=== PATIENT | female | born 1990 | race Caucasian/White ===

== ENCOUNTER 2017-06-08 19:01 | Inpatient (IN) | payer BC, OTHER ==
[2017-06-08 19:52] LABS: Absolute Lymphocytes (CBC) 2.4 K/uL (0.7-4.9); Absolute Monocytes 1.2 K/uL (0.1-1.3); Absolute Neutrophil 18.9 K/uL (1.8-8.0); Eosinophils % 1.3 % (0-4.4); Hematocrit 43.3 % (36.0-45.0); Lymphocytes % 10.5 % (15.3-44.8); MCH 30.1 pg (27.0-35.0); MCV 88.9 fL (80-100); MPV 7.8 fL (7.6-11.3); Monocytes % 5.2 % (3.3-12.3); RBC Red Blood Cell Count 4.87 M/uL (3.86-4.86)
[2017-06-08 20:00] LABS: Glomerular Filtration Rate > 60 mL/min (>60)
[2017-06-08 20:14] LABS: Glucose Level 165 mg/dL (65-120); Lipase 17 U/L (22-51)
[2017-06-08 20:19] LABS: Bicarbonate 25 mEq/L (21-31); Potassium 4.2 mEq/L (3.6-5.0); Sodium Level 138 mEq/L (135-145)
[2017-06-08 20:21] LABS: Albumin 3.9 g/dL (3.2-5.5); Alkaline Phosphatase 91 IU/L (42-121); BUN Blood Urea Nitrogen 17 mg/dL (6-20); Bilirubin Direct 0.2 mg/dL (0-0.2); Bilirubin Total 0.5 mg/dL (0.3-1.2); Glomerular Filtration Rate > 90 mL/min (=/>90); Protein, Total 7.7 g/dL (6.0-8.3)
[2017-06-08 20:22] LABS: ALT/SGPT 38 IU/L (10-60); AST/SGOT 27 IU/L (10-42); Amylase Level 36 U/L (28-100)
[2017-06-08 20:40] LABS: Urine Blood 2+ (NEG); Urine Glucose NEGATIVE (NEG); Urine Protein NEGATIVE (NEG); Urine Specific Gravity 1.025 (1.005-1.030)
[2017-06-08 20:43] LABS: Urine White Blood Cell Casts OK
[2017-06-08 20:43] LABS: Urine Bacteria <20 /HPF (<20); Urine Culture Reflex Order NOT NEEDED; Urine Mucus NS /HPF (NONE SEEN)
[2017-06-08 20:44] LABS: Blood Morphology Comment NOT SEEN (NOT SEEN); Platelet Estimate ADEQ
[2017-06-08] MEDS ORDERED: NA CHLORIDE 0.9% 1,000 ML ONE (20:56)
[2017-06-08] MEDS ORDERED: ONDANSETRON 4 MG/2 ML VIAL ONE ×2 (20:56→22:18)
[2017-06-08] MEDS ORDERED: MORPHINE 4 MG/ML SYR ONE ×2 (20:56→21:26)
--- NOTE | 2017-06-08 21:01 | RAD REPORT ---
EXAM DESCRIPTION: CT - Abdomen Pelvis Wo Contrast - 06/08/2017 8:51 pm CLINICAL HISTORY: Abdominal pain. COMPARISON: None TECHNIQUE: CT imaging of the abdomen and pelvis was performed without contrast. Solid organ, bowel a nd vascular assessment is limited due to lack of IV and oral contrast. All CT scans are performed using dose optimization technique as appropriate and may include automated exposure control or mA/KV adjustment according to patient size. FINDINGS: The lower lung helm are clear. The liver, spleen, pancreas, adrenal glands and kidneys are within normal limits for a limited non-co ntrast examination. No bowel obstruction, free air, free fluid or abscess. The appendix is dilated 12 mm with slight inf lammation in the surrounding fat, likely indicating early acute appendicitis. The osseous structures are within normal limits. IMPRESSION: Early acute appendicitis is suspected. A limited non-contrast examination was performed as detailed.
--- NOTE | 2017-06-08 21:40 | EDPHYS ---
Physician Documentation [facility] Name: Lisbeth Quarles Age: 26 yrs Sex: Female : 1990 Arrival Date: 06/08/2017 Time: 19:02 Bed 15 Private MD: ED Physician Tej Segundo HPI: 06/08 22:02 This 26 yrs old Female presents to ER via Wheelchair with complaints of tw4 Abdominal Pain. 22:02 The patient presents with abdominal pain right lower quadrant. Onset: The tw4 symptoms/episode began/occurred today. The symptoms do not radiate. Associated signs and symptoms: none. The symptoms are described as sharp. Modifying factors: The symptoms are alleviated by nothing, the symptoms are aggravated by nothing. Severity of pain: At its worst the pain was severe in the emergency department the pain is unchanged. The patient has not experienced similar symptoms in the past. 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 - Social history:: Smoking status: Patient/guardian denies using tobacco. ROS: 22:02 Constitutional: Negative for fever, chills, and weight loss, Eyes: Negative for injury, tw4 pain, redness, and discharge, Cardiovascular: Negative for chest pain, palpitations, and edema, Respiratory: Negative for shortness of breath, cough, wheezing, and pleuritic chest pain. 22:02 Abdomen/GI: Positive for abdominal pain, nausea, Negative for nausea and vomiting, nausea, vomiting, and diarrhea, black/tarry stool, rectal pain, rectal bleeding, bowel incontinence. Exam: 22:02 Constitutional: This is a well developed, well nourished patient who is awake, alert, tw4 and in no acute distress. Head/Face: Normocephalic, atraumatic. Chest/axilla: Normal chest wall appearance and motion. Nontender with no deformity. No lesions are appreciated. Cardiovascular: Regular rate and rhythm with a normal S1 and S2. No gallops, murmurs, or rubs. Normal PMI, no JVD. No pulse deficits. Respiratory: Lungs have equal breath sounds bilaterally, clear to auscultation and percussion. No rales, rhonchi or wheezes noted. No increased work of breathing, no retractions or nasal flaring. Back: No spinal tenderness. No costovertebral tenderness. Full range of motion. Skin: Warm, dry with normal turgor. Normal color with no rashes, no lesions, and no evidence of cellulitis. MS/ Extremity: Pulses equal, no cyanosis. Neurovascular intact. Full, normal range of motion. 22:02 Abdomen/GI: Inspection: abdomen appears normal, Bowel sounds: normal, Palpation: severe abdominal tenderness, in the right lower quadrant. Vital Signs: 19:34 BP 155 / 95; Pulse 116; Resp 19; Temp 99.6; Pulse Ox 97% on R/A; Weight 102.51 kg; aj Height 5 ft. 5 in. (165.10 cm); Pain 9/10; 22:02 BP 134 / 72; Pulse 102; Resp 16; Pulse Ox 99% on R/A; mt 19:34 Body Mass Index 37.61 (102.51 kg, 165.10 cm) aj MDM: 20:20 Patient medically screened. tw4 22:02 Differential diagnosis: appendicitis, gastritis, GI Bleed, Hepatitis, Ovarian Torsion. tw4 Data reviewed: vital signs, nurses notes. Data interpreted: Pulse oximetry: Interpretation: normal. Counseling: I had a detailed discussion with the patient and/or guardian regarding: the historical points, exam findings, and any diagnostic results supporting the discharge/admit diagnosis. Physician consultation: David Pandey MD regarding admission, to the operating room, patient's condition, and will see patient in ED. Admission orders: after a detailed discussion of the patient's condition and case, the admit orders are written by me. 06/08 19:36 Order name: Amylase, Serum; Complete Time: 20:28 06/08 19:36 Order name: Basic Metabolic Panel; Complete Time: 20:28 06/08 19:36 Order name: CBC with Diff; Complete Time: 21:24 06/08 19:36 Order name: Creatinine for Radiology; Complete Time: 20: 06/08 19:36 Order name: Hepatic Function; Complete Time: 20:28 06/08 19:36 Order name: Lipase; Complete Time: 20:28 06/08 19:36 Order name: Urine Microscopic Only; Complete Time: 21:24 06/08 20:05 Order name: CBC Smear Scan; Complete Time: 21:24 [facility] 06/08 20:26 Order name: Urine Dipstick--Ancillary (enter results); Complete Time: 21:24 [facility] 06/08 20:26 Order name: Urine --Ancillary (enter results); Complete Time: 21:24 [facility] 06/08 20:33 Order name: Abdomen ; Complete Time: 21:24 [facility] 06/08 19:36 Order name: IV Saline Lock; Complete Time: 20: 06/08 19:36 Order name: Labs collected and sent; Complete Time: 20: 06/08 19:36 Order name: Urine Dipstick-Ancillary (obtain specimen); Complete Time: 20:24 Administered Medications: 20:38 Drug: morphine 4 mg Route: IVP; Site: left antecubital; bp 21:10 Follow up: Response: No adverse reaction; Pain is decreased ao 20:38 Drug: Zofran 4 mg Route: IVP; Site: left antecubital; bp 21:10 Follow up: Response: No adverse reaction ao 20:38 Drug: NS 0.9% 1000 ml Route: IV; Rate: 1 bolus; Site: left antecubital; bp 22:09 Follow up: IV Status: Infusion continued upon admission ao 21:09 Drug: morphine 4 mg Route: IVP; Site: left antecubital; ao 22:09 Follow up: Response: No adverse reaction ao 21:52 Drug: fentaNYL (PF) 25 mcg {Note: Ordered IV. Given IVP.} Route: IM; Site: Other; ao 22:08 Follow up: Response: No adverse reaction ao 21:53 Drug: Zosyn 3.375 grams Route: IVPB; Infused Over: 60 mins; Site: left antecubital; ao 22:09 Follow up: IV Status: Infusion continued upon admission ao 21:53 Drug: Flagyl 500 mg Volume: 100 ml; Route: IVPB; Rate: 200 ml/hr; Infused Over: 30 ao mins; Site: left antecubital; 22:08 Follow up: IV Status: Follow up upon on admission ao Disposition: 06/08/17 21:40 Hospitalization ordered by David Pandey for Inpatient Admission. Preliminary diagnosis is Acute appendicitis with localized peritonitis. - Bed requested for Operating Room. - Status is Inpatient Admission. ao - Condition is Fair. - Problem is new. - Symptoms are unchanged. UTI on Admission? No Signatures: Dispatcher [employer] EDMS Tawanna Garcia RN RN aj Ortiz, Alex RN Henok Chiang, Tej Hennessy RN, MD MD tw4 Corrections: (The following items were deleted from the chart) 20:31 19:37 Abdomen Pelvis W Con+CT.RAD.BRZ ordered. EDMS EDMS 20:33 20:28 Abdomen Pelvis W/Wo Con+CT.RAD.BRZ ordered. EDMS EDMS
--- NOTE | 2017-06-08 21:40 | ER ---
Nurse's Notes [facility] Name: Lisbeth Quarles Age: 26 yrs Sex: Female : 1990 Arrival Date: 06/08/2017 Time: 19:02 Bed 15 Private MD: Diagnosis: Acute appendicitis with localized peritonitis Presentation: 06/08 19:32 Presenting complaint: Patient states: RLQ abdominal pain that is worse with movement aj and palpation. Transition of care: patient was not received from another setting of care. Onset of symptoms was June 08, 2017. Care prior to arrival: None. 19:32 Method Of Arrival: Wheelchair aj 19:32 Acuity: JODI 3 aj Triage Assessment: 19:34 General: Appears in no apparent distress. uncomfortable, Behavior is calm, cooperative, aj appropriate for age. Pain: Complains of pain in right lower quadrant Pain currently is 9 out of 10 on a pain scale. Neuro: Level of Consciousness is awake, alert, obeys commands, Oriented to person, place, time, situation. Respiratory: Airway is patent Respiratory effort is even, unlabored, Respiratory pattern is regular, symmetrical. GI: Abdomen is non-distended, obese, Reports lower abdominal pain. Derm: Skin is intact, is healthy with good turgor, Skin is pink, warm \T\ dry. normal. 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 - Social history:: Smoking status: Patient/guardian denies using tobacco. Screenin:20 Abuse screen: Denies threats or abuse. Denies injuries from another. Nutritional ao screening: No deficits noted. Tuberculosis screening: No symptoms or risk factors identified. Fall Risk None identified. Assessment: 20:18 General: Appears in no apparent distress. uncomfortable, Behavior is cooperative, ao appropriate for age. Pain: Complains of pain in abdomen Pain currently is 10 out of 10 on a pain scale. Neuro: Level of Consciousness is awake, alert, obeys commands, Oriented to person, place, time, situation, Appropriate for age Moves all extremities. Speech is normal, Facial symmetry appears normal. Cardiovascular: Capillary refill < 3 seconds Patient's skin is warm and dry. Respiratory: Airway is patent Respiratory effort is even, unlabored, Respiratory pattern is regular, symmetrical. GI: Bowel sounds present X 4 quads. Abdomen is tender to palpation. GI: Reports nausea, Pain is 10 out of 10 on a pain scale. : No signs and/or symptoms were reported regarding the genitourinary system. EENT: No signs and/or symptoms were reported regarding the EENT system. Derm: Skin is intact, Skin is pink, warm \T\ dry. Skin temperature is warm. Musculoskeletal: No signs and/or symptoms reported regarding the musculoskeletal system. Amputation of Range of motion: intact in all extremities. 21:21 Reassessment: Patient appears in no apparent distress at this time. Patient and/or ao family updated on plan of care and expected duration. Pain level reassessed. Patient is alert, oriented x 3, equal unlabored respirations, skin warm/dry/pink. Patient states feeling better. Vital Signs: 19:34 BP 155 / 95; Pulse 116; Resp 19; Temp 99.6; Pulse Ox 97% on R/A; Weight 102.51 kg; aj Height 5 ft. 5 in. (165.10 cm); Pain 9/10; 22:02 BP 134 / 72; Pulse 102; Resp 16; Pulse Ox 99% on R/A; mt 19:34 Body Mass Index 37.61 (102.51 kg, 165.10 cm) aj ED Course: 19:02 Patient arrived in ED. as 19:32 Triage completed. aj 19:34 Arm band placed on left wrist. Patient placed in waiting room, in view of staff aj members, Patient notified of wait time. Labs ordered per protocol. Drawn by ED staff. CT ordered. 19:43 Inserted saline lock: 20 gauge in left antecubital area, using aseptic technique. Blood aj collected. 19:45 Tawanna Garcia, RN is Primary Nurse. aj 20:04 CT patient finished contrast. aj 20:20 Tej Segundo MD is Attending Physician. tw4 20:21 Patient has correct armband on for positive identification. Pulse ox on. NIBP on. ao 20:51 Abdomen In Process Unspecified. EDMS 21:39 David Pandey MD is Hospitalizing Provider. tw4 22:06 No provider procedures requiring assistance completed. Patient admitted, IV remains in ao place. Administered Medications: 20:38 Drug: morphine 4 mg Route: IVP; Site: left antecubital; bp 21:10 Follow up: Response: No adverse reaction; Pain is decreased ao 20:38 Drug: Zofran 4 mg Route: IVP; Site: left antecubital; bp 21:10 Follow up: Response: No adverse reaction ao 20:38 Drug: NS 0.9% 1000 ml Route: IV; Rate: 1 bolus; Site: left antecubital; bp 22:09 Follow up: IV Status: Infusion continued upon admission ao 21:09 Drug: morphine 4 mg Route: IVP; Site: left antecubital; ao 22:09 Follow up: Response: No adverse reaction ao 21:52 Drug: fentaNYL (PF) 25 mcg {Note: Ordered IV. Given IVP.} Route: IM; Site: Other; ao 22:08 Follow up: Response: No adverse reaction ao 21:53 Drug: Zosyn 3.375 grams Route: IVPB; Infused Over: 60 mins; Site: left antecubital; ao 22:09 Follow up: IV Status: Infusion continued upon admission ao 21:53 Drug: Flagyl 500 mg Volume: 100 ml; Route: IVPB; Rate: 200 ml/hr; Infused Over: 30 ao mins; Site: left antecubital; 22:08 Follow up: IV Status: Follow up upon on admission ao Outcome: 21:40 Decision to Hospitalize by Provider. tw4 22:06 Admitted to OR accompanied by nurse, Other Bedside report given to OR Nurse. Patient ao agree with the POC at this moment 22:06 Condition: stable 22:06 Instructed on the need for admit. 22:07 Patient left the ED. ao Signatures: Dispatcher [employer] EDMS Tawanna Garcia RN RN aj Martinez, Amelia as Ortiz, Alex RN Erica Aaron mt, Brian, RN RN bp Wadley, Terrence, MD MD tw4
[2017-06-08] MEDS ORDERED: FENTANYL CITR 100 MCG/2 ML ONE ×2 (21:58→22:18)
[2017-06-08] MEDS ORDERED: PIPER/TAZO/NS 3.375gm 3.375 GM/100 ML BAG ONE (21:59)
[2017-06-08] MEDS ORDERED: METRONIDAZOLE 500mg IVPB 500 MG/100 ML BAG IV ONE (21:59)
[2017-06-08] MEDS ORDERED: PROPOFOL 200 MG/20 ML VIAL IV ONE (22:17)
[2017-06-08] MEDS ORDERED: MIDAZOLAM HCL 2 MG/2 ML INJ ONE (22:17)
[2017-06-08] MEDS ORDERED: GLYCOPYRROLATE 0.2 MG/ML SYR ONE (22:18)
[2017-06-08] MEDS ORDERED: MORPHINE 10 MG/ML VIAL ONE (22:19)
[2017-06-08] MEDS ORDERED: LIDOCAINE 1% MPF 5 ML VIAL ONE (22:19)
[2017-06-08] MEDS ORDERED: KETOROLAC 30 MG/ML INJ ONE (22:19)
[2017-06-08] MEDS ORDERED: ROCURONIUM 50 MG/5 ML VIAL IV ONE (22:19)
[2017-06-08] MEDS ORDERED: NEOSTIGMINE 1 MG/ML -5 ML SYRINGE ONE (22:19)
[2017-06-08] MEDS ORDERED: NA CIT/CITRIC AC 30 ML ORAL UDC ONE (22:31)
[2017-06-08] MEDS ORDERED: BUPIVACAINE 0.5% PF 10 ML VIAL ONE (22:32)
[2017-06-08] MEDS ORDERED: MORPHINE 4 MG/ML SYR IV PRN (22:37)
[2017-06-08] MEDS ORDERED: SODIUM CHLORIDE 0.9% 10ML INJ IV PRN (22:37)
--- NOTE | 2017-06-08 22:37 | P.BOP ---
Preoperative diagnosis: Acute appendicitis Postoperative diagnosis: same Primary procedure: Laparoscopic appendectomy Estimated blood loss: <20cc Specimen: danielle Findings: as above Anesthesia: General Complications: None Transferred to: Recovery Room Condition: Good
[2017-06-08] MEDS ORDERED: NA CHLORIDE 0.9% 1,000 ML IV SCH (23:00)
[2017-06-08] MEDS ORDERED: Ringers Lactate 1,000 ML IV ONE (23:30)
[2017-06-08] MEDS ORDERED: Levofloxacin 750mg IV 750 MG/150 ML BAG IV SCH (23:45)
[2017-06-09] MEDS ORDERED: CEFOXITIN 1 GM in NA CHLORIDE 0.9% 100 ML IVPB SCH ×2
[2017-06-09] MEDS: ONDANSETRON 4 MG/2 ML VIAL IV PRN ×2 (00:30→06:44)
--- NOTE | 2017-06-09 01:03 | OP ---
Date of Procedure: 06/08/2017 Surgeon: David Pandey MD Preoperative Diagnosis: Acute appendicitis. Postoperative Diagnosis: Acute appendicitis. Procedure: Laparoscopic appendectomy. Anesthesia: General plus local. Findings: Acute appendicitis. Indications: This is a case of a 26-year-old patient, who comes to us with acute abdominal pain, per itonitis. Fully explained the benefits, alternatives, and risks of laparoscopic, possible open appen dectomy, which include but are not limited to infection, bleeding, damage to adjacent structures, ane sthesia complication, [place], and even . She also understands this may not relieve any symptoms. S he might need more than one surgical intervention. She understood and signed a consent. Description Of Procedure: The patient was brought to the operating room, placed in supine position. Anesthesia was done without complication. Abdominal area was prepped and draped in a sterile fashio n. Marcaine 0.5% injected for local anesthetic, followed by sharp incision of the skin in the infrau mbilical region. Incision was carried down to fascia, which was opened under direct vision. Periton eum was encountered, opened under direct vision. Vicryl #1 placed inside the fascia. Pierre trocar was carefully introduced. Pneumoperitoneum was obtained. I placed 2 more trocars, 5 mm each one of them in the suprapubic and left lower quadrant under direct visualization. We proceeded to visualize the appendix, which looks inflamed. The base of the appendix seems to be spared from the inflammati on. So, we created a window in the base of the appendix, transected that with an Endo AICHA 45 mm, 3.5 and the mesoappendix with an Endo AICHA 45 mm, 2.5. Further hemostasis was obtained with the help of hemoclips 5 mm clips. Appendix removed from the abdominal cavity using an EndoCatch through the umbi lical incision. The area was inspected once again after irrigation, no bleeding, no bowel leak. At that moment, I proceeded to remove the trocars under direct vision. Deflated pneumoperitoneum. Clos ed the fascia with #1 Vicryl. Irrigated subcutaneous tissue and closed that with 3-0 chromic and ski n with weston. Sponge count and instrument counts were correct. The patient tolerated the procedur e well. The patient was sent to recovery in stable condition. JUAN/ANDREA Voice ID: [id number] Report ID: [id number]
--- NOTE | 2017-06-09 02:07 | HP ---
Date of Admission: 06/08/2017 Diagnosis: Acute appendicitis. Peritonitis. History Of Present Illness: This is a case of a 26-year-old patient who stated that this morning she woke up with cramps in the abdomen. During the day, it got worse to the point that the abdominal pa in became unbearable and she came to the ER, found that she had acute appendicitis. She denies any d ysuria, hematuria, hematochezia, or melena. Denies any recent traveling out of the country. Denies any family member sick at home. Allergies: NONE. Medications: Citalopram, Zyrtec, bupropion, and amoxicillin. Past Medical History: Depression and sleep apnea. Past Surgical History: Diskectomy L4-L5. Social Habits: She does not smoke. She does not drink alcohol. Review of Systems: Constitutional: Denies any fever or chills. Respiratory: Denies any shortness of breath. Gastrointestinal: As above. Genitourinary: Denies any dysuria or hematuria. Physical Examination: General: The patient is awake and alert. HEENT: Pupils are equal and reactive. Anicteric. Neck: Supple. Chest: Clear. Abdomen: Right lower quadrant tenderness with guarding and rebound. Rovsing sign positive. Psoas s ign positive. Pelvic: Deferred. Rectal: Deferred. Breasts: Deferred. Extremities: Good capillary refill. Laboratory Data: Blood work shows a WBC count of 22.7, hemoglobin of 14.6, platelets of 293. BUN is 17, lipase 17, total bilirubin 0.5. Urine negative. Diagnostic Data: CAT scan of abdomen and pelvis, interpreted by Dr. Valerio as acute appendicitis. Assessment: This is a 26-year-old patient with acute appendicitis. The patient was explained the ri ed for emergent laparoscopic, possible open appendectomy with benefits, alternatives, and risks inclu ding, but not limited to infection, bleeding, damage to adjacent structures, anesthesia complication, [place], and even . She also understands this may not relieve any symptoms. She might need more th an one surgical intervention. She understood. Signed a consent. OR was immediately called. JUAN/ANDREA Voice ID: [id number]
[2017-06-09 05:22] LABS: Absolute Lymphocytes (CBC) 2.4 K/uL (0.7-4.9); Absolute Monocytes 1.1 K/uL (0.1-1.3); Absolute Neutrophil 13.8 K/uL (1.8-8.0); Basophils % 0.2 % (0-1.3); Eosinophils % 0.8 % (0-4.4); Hematocrit 36.4 % (36.0-45.0); Lymphocytes % 13.8 % (15.3-44.8); MCH 30.3 pg (27.0-35.0); MCV 88.7 fL (80-100); MPV 7.8 fL (7.6-11.3); Monocytes % 6.2 % (3.3-12.3)
[2017-06-09 06:03] LABS: BUN Blood Urea Nitrogen 13 mg/dL (6-20); Bicarbonate 27 mEq/L (21-31); Glomerular Filtration Rate > 90 mL/min (=/>90); Glucose Level 125 mg/dL (65-120); Potassium 4.2 mEq/L (3.6-5.0); Sodium Level 140 mEq/L (135-145)
[2017-06-09] MEDS: HYDROCODONE/APAP 7.5/325 MG TAB PO PRN ×2 (06:44→10:57)
[2017-06-09] MEDS ORDERED: PANTOPRAZOLE 40 MG INJ IVP SCH (09:00)
--- NOTE | 2017-06-09 13:56 | P.DS ---
Admission Date: 06/08/17 Discharge Date: 06/09/17 Disposition: ROUTINE DISCHARGE Discharge Condition: GOOD Brief History of Present Illness: see h&P Hospital Course: unremarkable Vital Signs/Physical Exam: Temp Pulse Resp BP Pulse Ox 97.8 F 89 20 116/72 96 06/09/17 08:00 06/09/17 08:00 06/09/17 08:00 06/09/17 08:00 06/09/17 08:00 General: Alert, Oriented x3, Cooperative HEENT: Normocephalic, PERRLA Neck: Supple Respiratory: Normal air movement Cardiovascular: No edema, Normal pulses Gastrointestinal: Soft and benign Musculoskeletal: No erythema, No tenderness, No warmth Integumentary: No rashes, No breakdown Neurological: Normal speech Laboratory Data at Discharge: WBC 17.4 K/uL (4.3-10.9) H D 06/09/17 04:43 Hgb 12.4 g/dL (12.0-15.0) 06/09/17 04:43 Hct 36.4 % (36.0-45.0) D 06/09/17 04:43 Plt Count 243 K/uL (152-406) 06/09/17 04:43 Sodium 140 mEq/L (135-145) 06/09/17 04:43 Potassium 4.2 mEq/L (3.6-5.0) 06/09/17 04:43 BUN 13 mg/dL (6-20) 06/09/17 04:43 Creatinine 0.70 mg/dL (0.44-1.00) 06/09/17 04:43 Glucose 125 mg/dL (65-120) H 06/09/17 04:43 Total Bilirubin 0.5 mg/dL (0.3-1.2) 06/08/17 19:41 AST 27 IU/L (10-42) 06/08/17 19:41 ALT 38 IU/L (10-60) 06/08/17 19:41 Alkaline Phosphatase 91 IU/L (42-121) 06/08/17 19:41 Amylase 36 U/L (28-100) 06/08/17 19:41 Lipase 17 U/L (22-51) L 06/08/17 19:41 Home Medications: Acetaminophen with Codeine [Acetaminophen-Cod #3 Tablet] 1 each PO PRN 06/09/17 Alprazolam [Xanax] 0.25 mg PO BID PRN 06/09/17 Amoxicillin 500 mg PO DAILY 06/09/17 Bupropion HCl [Bupropion HCl Sr] 150 mg PO DAILY 06/09/17 Cetirizine HCl [All Day Allergy] 10 mg PO DAILY 06/09/17 Citalopram [Celexa] 40 mg PO DAILY 06/09/17 Codeine/APAP [Tylenol W/Codeine #3 tab] 1 tab PO Q4HP PRN #30 tab 06/09/17 Hydrocodone 5/APAP 325 [[place] 5/325] 1 tab PO Q6H PRN 06/09/17 Levofloxacin [Levaquin] 750 mg PO DAILY #6 tab 06/09/17 New Medications: Codeine/APAP [Tylenol W/Codeine #3 tab] 1 tab PO Q4HP PRN #30 tab PRN Reason: Pain Levofloxacin [Levaquin] 750 mg PO DAILY #6 tab Patient Discharge Instructions: Keep area dry for 24h then may shower. Remove weston by Health professional in 7-10 days Diet: AHA Activity: No lifting more than 10 lbs Followup: David Pandey MD [ACTIVE - CAN ADMIT] - 1 Week
== END 2017-06-09 12:03 | disposition home or self-care (01) | DRG 343 ==
LOC: ER 19:01 → ERHOLD 21:50 → 2ND 22:39
PROVIDERS: ADMIT Surgery; ATTEND Surgery
PROC: 0DTJ4ZZ Resection of Appendix, Percutaneous Endoscopic Approach (ICD-10-PCS; principal; 2017-06-08 23:00)
DX: K35.80 Unspecified acute appendicitis (principal); F32.89 Other specified depressive episodes; G47.30 Sleep apnea, unspecified
CPT/HCPCS: 36415; 74176; 80048; 80076; 81003; 81015; 81025; 82150; 83690; 85025; 88304; 88305; 96361; 96365; 96372; 96375; 99285; C9113; J0694; J2250; J2405; J2543; J2710; J3010; J7030